=== PATIENT | male | born 1975 | race Caucasian/White ===

== ENCOUNTER 2023-11-22 16:37 | Inpatient (IN) | payer OTHER ==
[2023-11-22 18:21] VITALS: BMI 20.9
[2023-11-22] MEDS ORDERED: LOPERAMIDE HCL 2 MG CAPSULE PO PRN (20:33)
[2023-11-22] MEDS ORDERED: ACETAMINOPHEN 325 MG TABLET (FP) PO PRN (20:33)
[2023-11-22] MEDS ORDERED: POLYETHYLENE GLYCOL (HEALTHYLAX) 3350 17 GM PACKET PO PRN (20:33)
[2023-11-22] MEDS ORDERED: BENZOCAINE/MENTHOL (CHLORASEPTIC ) LOZENGE MM PRN (20:33)
[2023-11-22] MEDS ORDERED: NALOXONE HCL 0.4 MG/ML VIAL IM PRN (20:33)
[2023-11-22] MEDS ORDERED: MAG HYDROX/AL HYDROX/SIMETH 30 ML UNIT-DOSE CUP PO PRN (20:33)
[2023-11-22] MEDS ORDERED: IBUPROFEN 600 MG TABLET (FP) PO PRN (20:33)
[2023-11-22] MEDS ORDERED: MAGNESIUM HYDROX 2400MG/30ML ORAL SUSPENSION 30 ML CUP PO PRN (20:33)
[2023-11-22] MEDS ORDERED: IBUPROFEN 400 MG TABLET (FP) PO PRN (20:33)
[2023-11-22] MEDS ORDERED: NALOXONE HCL (KLOXXADO) 8 MG SPRAY NS PRN (20:33)
[2023-11-22] MEDS ORDERED: NICOTINE POLACRILEX 4 MG GUM BUC PRN (20:33)
[2023-11-22] MEDS ORDERED: guaiFENesin 600 MG TABLET.ER (FP) PO PRN (20:33)
[2023-11-22] MEDS ORDERED: BENZONATATE 200 MG CAPSULE PO PRN (20:33)
[2023-11-22] MEDS: THIAMINE 100 MG TABLET PO SCH (22:05)
[2023-11-22] MEDS: BACITRACIN 0.9 GM PACKET TP SCH (22:05)
[2023-11-22] MEDS: MELATONIN 5 MG TABLETS PO SCH (22:05)
[2023-11-23] MEDS: PRENATAL VITAMINS W/ FOLIC ACID TABLET (FP) PO SCH (09:26)
[2023-11-23] MEDS: NICOTINE 14 MG/24 HOURS TOPICAL PATCH TD SCH (09:27)
[2023-11-23] MEDS: TUBERCULIN PPD 5 TU/0.1ML SYRINGE (IN PATIENT USE ONLY) ID ONE (09:32)
[2023-11-23 12:16] LABS: HEMATOCRIT 37.2 % (35.4-49); HEMOGLOBIN 12.2 GM/dL (11.7-16.9); MCHC 32.9 g/dl (32.0-35.9); MEAN CELL VOLUME 88.2 fl (80-96); MEAN PLT VOLUME 9.2 fl (7.5-11.1); PLATELET COUNT 182 10^3/uL (134-434); RBC 4.22 M/mm3 (4.00-5.60); RDW 14.3 % (11.9-15.9); WHITE BLOOD COUNT 5.3 K/mm3 (4.0-10.0)
[2023-11-23 12:40] LABS: CHLORIDE 109 mmol/L (98-107); POTASSIUM 4.3 mmol/L (3.5-5.1); SODIUM 140 mmol/L (136-145)
[2023-11-23 12:55] LABS: SGPT/ALT 19 U/L (13-61)
[2023-11-23 12:58] LABS: CALCIUM 9.1 mg/dL (8.5-10.1)
[2023-11-23 12:59] LABS: ALBUMIN 3.2 g/dl (3.4-5.0); BLOOD UREA NITROGEN 25.1 mg/dL (7-18); CO2 30 mmol/L (21-32); GLUCOSE,RANDOM 96 mg/dL (74-106)
[2023-11-23 13:02] LABS: SGOT/AST 21 U/L (15-37)
[2023-11-23 13:03] LABS: BILIRUBIN,TOTAL 0.2 mg/dL (0.2-1); TOT PROT 6.2 g/dl (6.4-8.2)
[2023-11-23 13:04] LABS: ALK PHOS 75 U/L (45-117)
[2023-11-23 13:14] LABS: ANION GAP 1 mmol/L (4-13)
[2023-11-23 14:43] LABS: SYPHILIS W/ RPR CONF NON-REACTIVE (NONREACTIVE)
[2023-11-25] MEDS: DOLUTEGRAVIR SODIUM 50 MG TABLET (NON-FORMULARY) PO SCH (17:51)
[2023-11-25] MEDS: lamiVUDine 150 MG TABLET PO SCH (17:51)
[2023-11-25] MEDS: PATIENT'S OWN MEDICATION (NON-FORMULARY) (Dolutegravir Sodium/Lamivudine [Dovato 50-300 Mg PO SCH (17:54)
[2023-11-26] MEDS: lamiVUDine 150 MG TABLET PO SCH (21:57)
[2023-11-26] MEDS: DOLUTEGRAVIR SODIUM 50 MG TABLET (NON-FORMULARY) PO SCH (21:57)
[2023-11-27 14:00] LABS: URINE APPEARANCE CLEAR; URINE BILIRUBIN NEGATIVE (NEGATIVE); URINE COLOR YELLOW; URINE GLUCOSE (UA) NEGATIVE (NEGATIVE); URINE KETONE NEGATIVE (NEGATIVE); URINE LEUK ESTERASE NEGATIVE (NEGATIVE); URINE NITRITE NEGATIVE (NEGATIVE); URINE PROTEIN NEGATIVE (NEGATIVE); URINE UROBILINOGEN 0.2 mg/dL (0.2-1.0)
[2023-12-01] MEDS: BACLOFEN 10 MG TABLET (FP) PO SCH (21:54)
[2023-12-02] MEDS: PANTOPRAZOLE 20 MG TABLET PO SCH (09:48)
[2023-12-08] MEDS ORDERED: BACITRACIN 0.9 GM PACKET TP PRN (14:25)
[2023-12-10] MEDS: hydrOXYzine PAMOATE 25 MG CAPSULE (FP) PO PRN (10:13)
[2023-12-19 07:16] VITALS: BP 100/67; PULSE 68; RESP 17; TEMP 97.8
== END 2023-12-19 07:14 | disposition home or self-care (01) | DRG 772 ==
LOC: YASAS 16:37 → Y3NR 21:20 → Y3E 11-24 14:19
PROVIDERS: ADMIT Allergy & Immunology; ATTEND Psychiatry & Neurology Pain Medicine
PROC: HZ42ZZZ Group Counseling for Substance Abuse Treatment, Cognitive-Behavioral (ICD-10-PCS; principal; 2023-11-22)
DX: F14.20 Cocaine dependence, uncomplicated (principal); F17.210 Nicotine dependence, cigarettes, uncomplicated; F99 Mental disorder, not otherwise specified; Z21 Asymptomatic human immunodeficiency virus [HIV] infection status; K21.9 Gastro-esophageal reflux disease without esophagitis; D50.9 Iron deficiency anemia, unspecified; T23.122 Burn of first degree of single left finger (nail) except thumb; X08.8XXS Exposure to other specified smoke, fire and flames, sequela
CPT/HCPCS: 36415; 80053; 80307; 81003; 85027; 86780; 86803; 93005; 93010; J0475